=== PATIENT | female | born 1970 | race Hispanic/Latino ===

== ENCOUNTER 2018-01-04 02:47 | Day surgery (SDC) | payer OTHER ==
[2018-01-04 03:32] LABS: BASO % 0.4 % (0.0-1.0); EOS # 0.1 10^3/uL (0.0-0.50); EOS % 1.3 % (0.0-3.0); HEMATOCRIT 39.4 % (36.0-47.0); HEMOGLOBIN 12.6 g/dl (12.0-15.5); IMMATURE GRANULOCYTE % 0.4 % (0-3.0); LYMPH # 1.9 10^3/uL (1.5-4.5); LYMPH % 17.7 % (24.0-44.0); MEAN CORPUSCULAR HEMOGLOBIN 28.5 pg (27.0-33.0); MEAN CORPUSCULAR VOLUME 89.1 fl (80.0-96.0); MONO # 0.5 10^3/uL (0.0-0.8); MONO % 4.5 % (0.0-5.0); NEUTROPHILS # 7.9 10^3/uL (1.8-7.7); NEUTROPHILS % 75.7 % (36.0-66.0); PLATELET COUNT, AUTOMATED 231 10^3/uL (150-450); RED BLOOD COUNT 4.42 10^6/uL (4.00-5.40); RED CELL DISTRIBUTION WIDTH 13.7 % (11.5-14.5); WHITE BLOOD COUNT 10.5 10^3/uL (4.0-10.0)
[2018-01-04 04:00] LABS: LACTIC ACID SEPSIS PROTOCOL 1.6 MMOL/L (0.4-2.0)
[2018-01-04 04:01] LABS: ALKALINE PHOSPHATASE 135 U/L (45-117); ALT/SGPT 62 U/L (12-78); ANION GAP 3 MEQ/L (8-16); AST/SGOT 84 U/L (7-37); BILIRUBIN,DIRECT 0.2 MG/DL (0.0-0.2); BILIRUBIN,TOTAL 0.7 MG/DL (0.2-1.0); BLOOD UREA NITROGEN 15 MG/DL (7-18); CALCIUM LEVEL 8.5 MG/DL (8.5-10.1); CARBON DIOXIDE LEVEL 29 MEQ/L (21-32); CHLORIDE LEVEL 108 MEQ/L (98-107); CPK CREATINE PHOSPHOKINASE 101 U/L (26-192); CREATININE FOR GFR 0.87 MG/DL (0.55-1.30); GLOMERULAR FILTRATION RATE > 60.0 (>58); GLUCOSE, FASTING 146 MG/DL (70-100); LIPASE 151 U/L (73-393); POTASSIUM SERUM 3.8 MEQ/L (3.5-5.1); SODIUM LEVEL 140 MEQ/L (136-145); TOTAL PROTEIN 7.3 GM/DL (6.4-8.2); TROPONIN I < 0.02 NG/ML (< 0.10)
[2018-01-04 04:02] LABS: CK-MB VALUE MASS < 1.0 NG/ML (<3.6); MB/CK RELATIVE INDEX 0.99 (< OR =4)
[2018-01-04] MEDS ORDERED: ISOVUE-370 76% 100ML VIAL (Q9967) As Ordered (05:57)
[2018-01-04] MEDS: NS 1,000 ML IV (10:23)
[2018-01-04] MEDS: AMPICILLIN SOD/SULBACTAM SOD 3 GM in D5W MINI-BAG PLUS 100 ML IV ×3 (10:23→22:42)
[2018-01-04] MEDS ORDERED: ONDANSETRON 4MG/2ML VIAL (J2405) IV (11:45)
[2018-01-04] MEDS ORDERED: KETOROLAC 30 MG/ML VIAL (J1885) IV (11:45)
[2018-01-04] MEDS ORDERED: MORPHINE 4 MG/ML 1ML VIAL/SYRINGE (J2270) IV (11:45)
[2018-01-04] MEDS: LR 1,000 ML IV ×2 (12:45→19:45)
[2018-01-04] MEDS ORDERED: MIDAZOLAM INJ 2 MG/2 ML VIAL (J2250) As Ordered (17:24)
[2018-01-04] MEDS ORDERED: ROCURONIUM BROMIDE 50 MG/5 ML VIAL As Ordered (17:24)
[2018-01-04] MEDS ORDERED: LIDOCAINE 2% INJ 100 MG/5 ML SDV (FOR ANES.) As Ordered (17:24)
[2018-01-04] MEDS ORDERED: fentaNYL 250 MCG/5 ML INJECTION (J3010) As Ordered (17:24)
[2018-01-04] MEDS ORDERED: KETOROLAC 60 MG/2 ML VIAL (J1885) As Ordered (17:24)
[2018-01-04] MEDS ORDERED: PROPOFOL 200 MG/20 ML VIAL As Ordered ×2 (17:24→18:51)
[2018-01-04] MEDS ORDERED: dexameTHASONE 4 MG/ML 1ML VIAL (J1100) As Ordered (17:24)
[2018-01-04] MEDS ORDERED: ePHEDrine SULFATE 25 MG/5 ML(5MG/ML) SYRINGE As Ordered (18:12)
[2018-01-04] MEDS ORDERED: GLYCOPYRROLATE INJ 0.2 MG/ML 2 ML VIAL As Ordered (18:12)
[2018-01-04] MEDS: BUPIVACAINE HCL 0.25% 30 ML VIAL As Ordered (18:18)
[2018-01-04] MEDS: BUPIVACAINE HCL 0.25% 10 ML VIAL As Ordered (18:18)
[2018-01-04] MEDS ORDERED: fentaNYL 100 MCG/2 ML INJECTION (J3010) As Ordered (18:47)
[2018-01-04] MEDS ORDERED: ACETAMINOPHEN TAB 650MG DOSE (2X325MG) PO (19:45)
[2018-01-04] MEDS ORDERED: HYDROmorphone HCL 1 MG/ML SYRINGE (J1170) IV (19:45)
[2018-01-04] MEDS ORDERED: fentaNYL 100 MCG/2 ML INJECTION (J3010) IV (19:45)
[2018-01-04] MEDS ORDERED: NORCO, ANEXSIA 5/325MG TABLET (HYDROcodone/ACETAMINOPHEN) PO (19:45)
[2018-01-04] MEDS ORDERED: PERCOCET 5MG/325MG TAB As Ordered ×2 (19:48→20:04)
[2018-01-04] MEDS ORDERED: ONDANSETRON 4MG/2ML VIAL (J2405) As Ordered (19:48)
[2018-01-04] MEDS: PERCOCET 5MG/325MG TAB PO ×2 (19:55→20:14)
[2018-01-04] MEDS: ONDANSETRON 4MG/2ML VIAL (J2405) IV (20:06)
[2018-01-04] MEDS ORDERED: PERCOCET 5MG/325MG TAB PO (20:15)
[2018-01-05] MEDS: AMPICILLIN SOD/SULBACTAM SOD 3 GM in D5W MINI-BAG PLUS 100 ML IV (03:46)
[2018-01-05] MEDS: IBUPROFEN 400 MG TAB PO (13:23)
== END 2018-01-05 13:33 | disposition home or self-care (01) ==
LOC: M OPP 01-05 13:33 → M ED 02:47 → M OPP 11:39 → M PED 14:50
DX: K80.00 Calculus of gallbladder with acute cholecystitis without obstruction (principal); E66.9 Obesity, unspecified; Z68.41 Body mass index [BMI] 40.0-44.9, adult
CPT/HCPCS: 47562

== ENCOUNTER → 2019-10-08 | Outpatient (CLI) | payer OTHER ==
--- NOTE | 2019-10-08 15:08 | REPMRS ---
Patient History The patient states she has not had a clinical breast exam in over a year. Family history of unknown cancer at age 40 in father, prostate cancer at age 75 in brother. Indicated problem(s): left breast palpable abnormality. Patient has translater with her. Patient states no new breast issues but has had same lump for 3 years. 2D only due to insurance. Digital Mammo Diagnostic Bilateral: October 08, 2019 - Exam #: [id number] Bilateral CC and MLO view(s) were taken. Technologist: Sole Magaña, Technologist Prior study comparison: June 15, 2016, left breast digital mammo diagnostic unilateral performed at [facility]. May 12, 2016, bilateral digital mammo screening bilat performed at [facility]. FINDINGS: There are scattered fibroglandular densities. The nodule noted in the upper outer quadrant of the left breast on the 2016 prior mammogram is no longer apparent.There has been no change in the appearance of the mammogram from the prior studies. There is a mild amount of scattered fibroglandular density which is fairly symmetric. There is no interval development of dominant mass, architectural distortion, or groupe d microcalcification suggestive of malignancy. 3-D tomosynthesis shows no additional findings. Assessment: BI-RADS/ACR category 1 mammogram. Negative Mammogram. Recommendation Routine screening mammogram of both breasts in 1 year (for women over age 40). This patient's Lifetime Breast Cancer Risk is estimated at 7.9 %. This mammogram was interpreted with the aid of an FDA-approved computer-aided dectection system. Electronically Signed By: Dane Murray MD 10/08/19 5915
== END ==
LOC: M RAD 13:33
PROVIDERS: ATTEND Nurse Practitioner Primary Care
DX: Z12.31 Encounter for screening mammogram for malignant neoplasm of breast (principal); N63.20 Unspecified lump in the left breast, unspecified quadrant; Z80.42 Family history of malignant neoplasm of prostate

== ENCOUNTER 2020-10-13 08:00 | Day surgery (SDC) | payer OTHER ==
[~2020-10-13] VITALS: Ht 167.6 cm; Wt 110.6 kg
[~2020-10-13 08:00] MED LIST: ACETAMINOPHEN 650 MG SUPP PR ONE; LISI10TA22; LR 1,000 ML IV ONE; ceFAZolin SOD 2 GM in IV 1 EA IV ONE
--- OUTSIDE RECORDS SUMMARY | 2020-10-13 08:11 | CCD | Continuity of Care Document ---
Author Nidia Skelton Organization Unknown Address [address] [facility], [facility] [place] [address] Phone [phone] Care Team Providers Care Chart Reader Name Role Phone Margareth Canchola CAR REPAIRER APPRENTICE AUTM [phone] Problems Active Problems Provider Date Body mass index 30+ - obesity David Magdaleno MD Onset: 01/2020 Pure hypercholesterolemia David Magdaleno MD Onset: 020 Essential hypertension David Magdaleno MD Onset: 06/29/2020 Cardiomegaly David Magdaleno MD Onset: 06/29/2020 Precordial pain David Magdaleno MD Onset: 06/29/2020 Social History Type Date Description Comments Sex Unknown ETOH Use Never used alcohol Tobacco Use Start: Unknown Patient has never smoked Exposed to secondhand smoke for 18 years growing up Smoking Status Reviewed: 06/29/20 Patient has never smoked Expo sed to secondhand smoke for 18 years growing up 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 Exercise Type/Frequency Bikes twice a week Exercise Limitations None Allergies, Adverse Reactions, Alerts Description No Known Drug Allergies Medications Active Medications SIG Qnty Indications Ordering Provide r Date Lisinopril 10mg Tablets 1 by mouth every day Unknown 06/28/2020 Immunizations Description No Information Available Vital Signs Date Vital Result Comment 06/29/2020 10:03am Weight 250.00 lb Home Weight 246lb home weight Height 68 inches 5'8" BMI (Body Mass Index) 38.0 kg/m2 Heart Rate 54 /min regular Respiratory Rate 16 /min BP Systolic Sitting 102 mmHg large cuff, Ra; 110/ 80 LA BP Diastolic Sitting 74 mmHg large cuff, Ra; 110 /80 LA BP Systolic Lying Down 116 mmHg Ra BP Diastolic Lying Down 78 mmHg Ra O2 % BldC Oximetry 98 % O2 Saturation Level with Exercise 96 % Results Test Acquired Date Facility Test Result H/L Range Note Laboratory test finding 03/17/2020 [place] [address] [phone] Thyroid Stimulating Hormone 1.210 CBC without Differential 03/17/2020 [place] [address] [phone] White Blood Count 5.80 Red Blood Count 4.46 Platelets 212 Hemoglobin 13.4 Hematocrit 40.9 Procedures Date Code Description Status 08/05/2020 70197 Echocardiogram 2-D Doppler Color Completed 07/13/2020 91597 Treadmill/Pharmacological Monito ring Completed 07/13/2020 73064 Myocardial Perfusion Spect Multi ple Completed 07/01/2020 99622 Treadmill/Pharmacological Monito ring Completed 06/29/2020 74490 ECG 12-Lead Completed Medical Devices Description No Information Available Encounters Type Date Location Provider Dx Diagnosis Office Visit 06/29/2020 9:30a Main Office David Magdaleno MD R07.2 Precordial pain I51.7 Cardiomegaly I10 Essential (primary) hyperten erika E78.00 Pure hypercholesterolemia, u nspecified Z68.38 Body mass index [BMI] 38.0-3 8.9, adult Assessments Date Code Description Provider 08/05/2020 I51.7 Cardiomegaly ECHO 08/05/2020 R06.02 Shortness of breath ECHO 08/05/2020 R60.0 Localized edema ECHO 07/13/2020 R07.2 Precordial pain Stress Nuclear/R eg Treadmill 07/01/2020 R07.2 Precordial pain Stress Nuclear/R eg Treadmill 06/29/2020 R07.2 Precordial pain David Magdaleno MD 06/29/2020 I51.7 Cardiomegaly David Magdaleno MD 06/29/2020 I10 Essential (primary) hypertension David Magdaleno MD 06/29/2020 E78.00 Pure hypercholesterolemia, unspe cified David Magdaleno MD 06/29/2020 Z68.38 Body mass index [BMI] 38.0-38.9, adult David Magdaleno MD Plan of Treatment Future Appointment(s):* 08/07/2020 11:00 am - David Magdaleno MD at Main Office 06/29/2020 - David Magdaleno MD* R07.2 Precordial pain* Recommendations:* Have recommended a regular treadmill stress study to define her coronary prognosis and exercise tolerance. For the time being, remains on protective lisinopril therapy alone. * I51.7 Cardiomegaly* Recommendations:* Echocardiogram/Doppler study will be obtained to define cardiac chamber sizes, wall thickness and function. Would emphasized the importance of significant weight reduction to reduce cardiac workload and prevent heart failure. * I10 Essential (primary) hypertension* Recommendations:* Encouraged salt and caloric restriction with regular exercise. Should avoid cooking with salt; using salt the table; and eating food that tastes salty. No change has been made to her current lisinopril pending the results of her noninvasive cardiac tests. * E78.00 Pure hypercholesterolemia, unspecified* Recommendations:* Would encourage continued dietary measures and regular exercise i.e walking at her own pace for at least 30 minutes daily. * Z68.38 Body mass index [BMI] 38.0-38.9, adult* Recommendations:* Have encouraged a low carbohydrate diet (avoiding bread, potatoes, pasta, rice, fruit, candy, desserts, and beer etc.) as these, with regular exercise, have been shown to be more effective in leading to weight loss. Emphasized every pound she loses reduces her cardiac workload and her risk for congestive heart failure. * All * Comments:* I will ensure that the aforementioned test findings are reported to you along with any further recommendations. Thank you for allowing me to participate in the care of your patient. Best regards. * Follow up:* Clinic visit post testing Functional Status Functional Condition Comment Date Status Independent with all ADL's Activ e Mental Status Description No Information Available Referrals Refer to Reason for Referral Status Appt Date David Magdaleno MD 1 CLT AUTH EMR-VALID 03/28/20 - 09/24/20. [place] Created [address] [facility] [address] [phone] David Magdaleno MD 3 OV VALID 03/28/20 - 03/28/21. [place] Created [id number] [facility] [address] [phone]
--- OUTSIDE RECORDS SUMMARY | 2020-10-13 08:11 | CCD ---
Author Author [facility] Organization [facility] Address Unknown Phone Unavailable Care Team Providers Care Cinetechnician Name Role Phone Sherice DEVINE MD Unavailable Unavailable Sherice DEVINE MD Unavailable Unavailable Sherice DEVINE MD Unavailable Unavailable Sherice DEVINE MD Unavailable Unavailable Sherice DEVINE MD Unavailable Unavailable Sherice DEVINE MD Unavailable Unavailable Sherice DEVINE MD Unavailable Unavailable Sherice DEVINE MD Unavailable Unavailable Sherice DEVINE MD Unavailable Unavailable Sherice DEVINE MD Unavailable Unavailable Sherice DEVINE MD Unavailable Unavailable Sherice DEVINE MD Unavailable Unavailable Sherice DEVINE MD Unavailable Unavailable Nadeem, Jeanette DO Unavailable Unavailable Nadeem, Jeanette DO Unavailable Unavailable Nadeem, Jeanette DO Unavailable Unavailable Nadeem, Jeanette DO Unavailable Unavailable Nadeem, Jeanette DO Unavailable Unavailable Nadeem, Jeanette DO Unavailable Unavailable Nadeem, Ejanette DO Unavailable Unavailable Nadeem, Jeanette DO Unavailable Unavailable Nadeem, Jeanette DO Unavailable Unavailable Nadeem, Jeanette DO Unavailable Unavailable Nadeem, Jeanette DO Unavailable Unavailable Nadeem, Jeanette DO Unavailable Unavailable Nadeem, Jeanette DO Unavailable Unavailable Nadeem, Jeanette DO Unavailable Unavailable Nadeem, Jeanette DO Unavailable Unavailable Nadeem, Jeanette DO Unavailable Unavailable Nadeem, Jeanette DO Unavailable Unavailable Nadeem, Jeanette DO Unavailable Unavailable Nadeem, Jeanette DO Unavailable Unavailable Nadeem, Jeanette DO Unavailable Unavailable Nadeem, Jeanette DO Unavailable Unavailable Nadeem, Jeanette DO Unavailable Unavailable Nadeem, Jeanette DO Unavailable Unavailable Nadeem, Jeanette DO Unavailable Unavailable Nadeem, Jeanette DO Unavailable Unavailable Nadeem, Jeanette DO Unavailable Unavailable Nadeem, Jeanette DO Unavailable Unavailable Nadeem, Jeanette DO Unavailable Unavailable Nadeem, Jenaette DO Unavailable Unavailable Nadeem, Jeanette DO Unavailable Unavailable Nadeem, Jeanette DO Unavailable Unavailable Nadeem, Jeanette DO Unavailable Unavailable Nadeem, Jeanette DO Unavailable Unavailable Nadeem, Jeanette DO Unavailable Unavailable Nadeem, Jeanette DO Unavailable Unavailable Nadeem, Jeanette DO Unavailable Unavailable Nadeem, Jeanette DO Unavailable Unavailable Nadeem, Jeanette DO Unavailable Unavailable Nadeem, Jeanette DO Unavailable Unavailable Nadeem, Jeanette DO Unavailable Unavailable Nadeem, Jeanette DO Unavailable Unavailable Nadeem, Jeanette DO Unavailable Unavailable Nadeem, Jeanette DO Unavailable Unavailable Nadeem, Jeanette DO Unavailable Unavailable Nadeem, Jeanette DO Unavailable Unavailable Nadeem, Jeanette DO Unavailable Unavailable Nadeem, Jeanette DO Unavailable Unavailable Nadeem, Jeanette DO Unavailable Unavailable Nadeem, Jeanette DO Unavailable Unavailable Nadeem, Jeanette DO Unavailable Unavailable Nadeem, Jeanette DO Unavailable Unavailable Nadeem, Jeanette DO Unavailable Unavailable Nadeem, Jeanette DO Unavailable Unavailable Nadeem, Jeanette DO Unavailable Unavailable Nadeem, Jeanette DO Unavailable Unavailable Nadeem, Jeanette DO Unavailable Unavailable Nadeem, Jeanette DO Unavailable Unavailable Nadeem, Jeanette DO Unavailable Unavailable Nadeem, Jeanette DO Unavailable Unavailable Nadeem, Jeanette DO Unavailable Unavailable Nadeem, Jeanette DO Unavailable Unavailable Nadeem, Jeanette DO Unavailable Unavailable Nadeem, Jeanette DO Unavailable Unavailable Nadeem, Jeanette DO Unavailable Unavailable Nadeem, Jeanette DO Unavailable Unavailable Nadeem, Jeanette DO Unavailable Unavailable Nadeem, Jeanette DO Unavailable Unavailable Nadeem, Jeanette DO Unavailable Unavailable Nadeem, Jeanette DO Unavailable Unavailable Nadeem, Jeanette DO Unavailable Unavailable Nadeem, Jeanette DO Unavailable Unavailable Nadeem, Jeanette DO Unavailable Unavailable Kadeem FINE MD Unavailable Unavailable Kadeem FINE MD Unavailable Unavailable Kadeem FINE MD Unavailable Unavailable Kadeem FINE MD Unavailable Unavailable FINE, Kadeem SAHNI MD Unavailable Unavailable FINE, Kadeem SAHNI MD Unavailable Unavailable FINE, Kadeem SAHNI MD Unavailable Unavailable FINE, Kadeem SAHNI MD Unavailable Unavailable FINE, Kadeem SAHNI MD Unavailable Unavailable FINE, Kadeem SAHNI MD Unavailable Unavailable FINE, Kadeem SAHNI MD Unavailable Unavailable FINE, Kadeem SAHNI MD Unavailable Unavailable FINE, Kadeem SAHNI MD Unavailable Unavailable FINE, Kadeem SAHNI MD Unavailable Unavailable FINE, Kadeem SAHNI MD Unavailable Unavailable FINE, Kadeem SAHNI MD Unavailable Unavailable FINE, Kadeem SAHNI MD Unavailable Unavailable FINE, Kadeem SAHNI MD Unavailable Unavailable FINE, Kadeem SAHNI MD Unavailable Unavailable FINE, Kadeem SAHNI MD Unavailable Unavailable FINE, Kadeem SAHNI MD Unavailable Unavailable FINE, Kadeem SAHNI MD Unavailable Unavailable FINE, Kadeem SAHNI MD Unavailable Unavailable FINE, Kadeem SAHNI MD Unavailable Unavailable FINE, Kadeem SAHNI MD Unavailable Unavailable FINE, E KAITLYN RODRIGUEZ Unavailable Unavailable FINE, Kadeem SAHNI MD Unavailable Unavailable FINE, Kadeem SAHNI MD Unavailable Unavailable FINE, Kadeem SAHNI MD Unavailable Unavailable FINE, Kadeem SAHNI MD Unavailable Unavailable FINE, Kadeem SAHNI MD Unavailable Unavailable FINE, Kadeem SAHNI MD Unavailable Unavailable FINE, Kadeem SAHNI MD Unavailable Unavailable FINE, Kadeem SAHNI MD Unavailable Unavailable FINE, Kadeem SAHNI MD Unavailable Unavailable FINE, Kadeem SAHNI MD Unavailable Unavailable FINE, Kadeem SAHNI MD Unavailable Unavailable FINE, Kadeem SAHNI MD Unavailable Unavailable FINE, E KAITLYN RODRIGUEZ Unavailable Unavailable FINE, Kadeem SAHNI MD Unavailable Unavailable FINE, E KAITLYN RODRIGUEZ Unavailable Unavailable FINE, Kadeem SAHNI MD Unavailable Unavailable FINE, Kadeem SAHNI MD Unavailable Unavailable FINE, E KAITLYN RODRIGUEZ Unavailable Unavailable FINE, Kadeem SAHNI MD Unavailable Unavailable FINE, Kadeem SAHNI MD Unavailable Unavailable FINE, Kadeem SAHNI MD Unavailable Unavailable FINE, Kadeem SAHNI MD Unavailable Unavailable FINE, Kadeem SAHNI MD Unavailable Unavailable FINE, Kadeem SAHNI MD Unavailable Unavailable FINE, Kadeem SAHNI MD Unavailable Unavailable FINE, Kadeem SAHNI MD Unavailable Unavailable FINE, Kadeem SAHNI MD Unavailable Unavailable FINE, Kadeem SAHNI MD Unavailable Unavailable FINE, Kadeem SAHNI MD Unavailable Unavailable FINE, Kademe SAHNI MD Unavailable Unavailable FINE, Kadeem SAHNI MD Unavailable Unavailable Re-disclosure Warning The records that you are about to access may contain information from federally-assisted alcohol or drug abuse programs. If such information is present, then the following federally mandated warning applies: This information has been disclosed to you from records protected by federal confidentiality rules (42 CFR part 2). The federal rules prohibit you from making any further disclosure of this information unless further disclosure is expressly permitted by the written consent of the person to whom it pertains or as otherwise permitted by 42 CFR part 2. A general authorization for the release of medical or other information is NOT sufficient for this purpose. The Federal rules restrict any use of the information to criminally investigate or prosecute any alcohol or drug abuse patient.The records that you are about to access may contain highly sensitive health information, the redisclosure of which is protected by Article 27-F of the [facility] Public Health law. If you continue you may have access to information: Regarding HIV / AIDS; Provided by facilities licensed or operated by the [facility] Office of Mental Health; or Provided by the [facility] Office for People With Developmental Disabilities. If such information is present, then the following [facility] mandated warning applies: This information has been disclosed to you from confidential records which are protected by state law. State law prohibits you from making any further disclosure of this information without the specific written consent of the person to whom it pertains, or as otherwise permitted by law. Any unauthorized further disclosure in violation of state law may result in a fine or fci sentence or both. A general authorization for the release of medical or other information is NOT sufficient authorization for further disc losure. Allergies and Adverse Reactions Type Description Substance Reaction Status Data Source(s ) No Known Drug Allergies No Known Drug Allergies [facility] No Known Environmental Allergies No Known Environmental [facility] No Known Food Allergies No Known Food Allergies [facility] Family History Family Member Name Family Member Gender Family Member Status Date o f Status Description Data Source(s) Unknown Unknown Problem [facility] ([facility], ) Encounters Encounter Providers Location Date Indications Data Source(s ) Outpatient Attender: KAITLYN FINE MD Main Office 06/29/2020 09:30:00 AM EDT [facility] ([facility]) Outpatient Attender: IRVIN DEVINE MD 2019 08:28:56 AM EDT - 12/03/2019 08:42:00 AM T [facility] Patient discharged. Outpatient Attender: IRVIN DEVINE MD 2019 04:04:00 PM EST - 11/27/2019 05:04:00 PM [facility] Outpatient Referrer: Jeanette Silver DO 10/22/2019 09:01:00 PM EST [facility] Outpatient Attender: IRVIN DEVINE MD 2019 01:04:00 PM EST - 10/03/2019 01:04:00 PM EST [facility] Medications Medication Brand Name Start Date Product Form Dose Route Admi nistrative Instructions Pharmacy Instructions Status Indications Reaction Description Data Source(s) Lisinopril 10 MG Oral Tablet Lisinopril 06/28/2020 12:00:00 AM EDT ORAL active [facility] ([facility]) Bisacodyl 5 MG Delayed Release Oral Tablet [Dulcolax] Dulcol ax 10/03/2019 12:00:00 AM EST active M [facility] ([facility]) POLYETHYLENE GLYCOL 3350 142 MG/ML Oral Solution [Miralax] M iralax 10/03/2019 12:00:00 AM EST active M [facility] ([facility]) No Active Medications 10/03/2019 12:00:00 AM EST completed [facility] ([facility]) Insurance Providers Payer name Policy type / Coverage type Policy ID Covered democrat ID Covered democrat's relationship to ryan Policy Ryan Plan Information [employer] [id number] HU2 [id number] [place] [employer] [place] [id number] 01 [id number] HUMANA [place] [id number] S [id number] [place] [id number] 18 [id number] [employer] [id number] HU2 [id number] [place] P [id number] O [id number] [place] P UNAVAILABLE S UNAVAILABLE [place] (2018) Health Maintenance Organization (HMO) [id number] Self [id number] [employer] [place] [id number] HU2 [id number] [facility] Commercial Family Dependent [facility] [place] O [id number] P [id number] D [facility] Dental Program P [id number] O [id number] Problems, Conditions, and Diagnoses Code Display Name Description Problem Type Effective Dates Data Source(s) 72944976 Precordial pain Precordial pain Problem 06/29/2020 12:0 0:00 AM EDT [facility] ([facility]) [id number] Cardiomegaly Cardiomegaly Problem 06/29/2020 12:00:00 A M EDT [facility] ([facility]) [id number] Essential hypertension Essential hypertension Problem 06/29/2020 12:00:00 AM EDT [facility] ([facility]) [id number] Pure hypercholesterolemia Pure hypercholesterolemia Pr oblem 06/29/2020 12:00:00 AM EDT [facility] ([facility]) [id number] Body mass index 30+ - obesity Body mass index 30+ - ob esity Problem 06/29/2020 12:00:00 AM EDT [facility] ([facility]) [id number] Encounter for screening for malignant ne oplasm of colon Encounter for screening for malignant neoplasm of colon Diagnosis 12/03/2019 06:30:0 0 AM EDT [facility] [id number] Encounter for other preprocedural examin ation Encounter for other preprocedural examination Diagnosis 11/27/2019 04:04:00 PM EST Health system Surgeries/Procedures Procedure Description Date Indications Data Source(s) ECHO TTHRC R-T 2D W/WOM-MODE COMPL SPEC&COLR DOP 08/05 12:00:00 AM EST [facility] ([facility]) MYOCARDIAL SPECT MULTIPLE STUDIES 07/13/2020 12:00:00 AM EDT [facility] ([facility]) CV STRS TST XERS&/OR RX CONT ECG PHYS SI&R 07/13/2020 12:00:00 AM EDT [facility] ([facility]) CV STRS TST XERS&/OR RX CONT ECG PHYS SI&R 07/01/2020 12:00:00 AM EDT [facility] ([facility]) ECG ROUTINE ECG W/LEAST 12 LDS W/I&R 06/29/2020 12:00: 00 AM EDT [facility] ([facility]) Results ID Date Data Source [id number] 10/08/2020 11:13:00 AM EST [facility] Name Value Range Interpretation Code Description Data Alison rce(s) Supporting Document(s) SARS coronavirus 2 RNA Not Detected [facility] [place] This lab was ordered by [facility] Laboratory and reported by [facility]. ID Date Data Source [id number] 03/17/2020 05:19:00 PM EDT [facility] Name Value Range Interpretation Code Description Data Alison rce(s) Supporting Document(s) White Blood Count 5.80 [facility] ([facility]) Hemoglobin 13.4 [facility] ([facility]) Red Blood Count 4.46 [facility] ([facility]) Platelets 212 [facility] Hematocrit 40.9 [facility] ([facility]) ID Date Data Source [id number] 03/17/2020 05:19:00 PM EDT [facility] Name Value Range Interpretation Code Description Data Alison rce(s) Supporting Document(s) Thyroid Stimulating Hormone 1.210 ME [facility] ([facility]) Procedure Social History Code Duration Value Status Description Data Source(s ) Smoking 06/29/2020 12:00:00 AM EDT Patient has never smoked co mpleted Patient has never smoked [facility] ([facility]) Vital Signs ID Date Data Source UNK Name Value Range Interpretation Code Description Data Source(s) Oxygen saturation in Arterial blood by Pulse oximetry --post exerci se 96 % 96 % [facility] ([facility]) Oxygen saturation in Arterial blood by Pulse oximetry 98 % 98 % [facility] ([facility]) Diastolic blood pressure--supine 78 mm[Hg] 78 mm[Hg] [facility] ([facility]) Ra Systolic blood pressure--supine 116 mm[Hg] 116 mm[Hg] [facility] ([facility]) Ra Diastolic blood pressure--sitting 74 mm[Hg] 74 mm[Hg] [facility] ([facility]) large cuff, Ra; 110/80 LA Systolic blood pressure--sitting 102 mm[Hg] 102 mm[Hg] [facility] ([facility]) large cuff, Ra; 110/80 LA Respiratory rate 16 /min 16 /min [facility] ( [facility]) Heart rate 54 /min 54 /min [facility] ([facility]) regular Body mass index (BMI) [Ratio] 38.0 kg/m2 38.0 k g/m2 [facility] ([facility]) Body height 68 [in_i] 68 [in_i] [facility] 5'8" Body weight 250.00 [lb_av] 250.00 [lb_av] [facility] T ([facility]) Body surface area 2.24 m2 2.24 m2 [facility] ([facility]) Body mass index (BMI) [Ratio] 37.9 kg/m2 37.9 k g/m2 [facility] ([facility]) Body height 68 [in_i] 68 [in_i] [facility] ([facility]) 5'8" pt states Body weight 112.946 kg 112.946 kg [facility] ([facility]) Body weight 249.00 [lb_av] 249.00 [lb_av] MED[facility] T ([facility]) Oxygen saturation in Arterial blood by Pulse oximetry 98 % 98 % [facility] ([facility]) Respiratory rate 18 /min 18 /min [facility] ( [facility]) Body temperature 97.2 [degF] 97.2 [degF] [facility] ([facility]) Heart rate 78 /min 78 /min [facility] ([facility]) Diastolic blood pressure 78 mm[Hg] 78 mm[Hg] [facility] ([facility]) Systolic blood pressure 124 mm[Hg] 124 mm[Hg] [facility]) ID Date Data Source [id number] 12/10/2019 12:41:01 PM EDT [facility] Name Value Range Interpretation Code Description Data Source(s) WEIGHT RECORDED 249.[address] [facility] Height 68 Inches 068 Inches [facility]
[2020-10-13 08:59] LABS: HEMATOCRIT 43.7 % (36.0-47.0); HEMOGLOBIN 13.7 g/dl (12.0-15.5); MEAN CORPUSCULAR HGB CONC 31.4 g/dl (32.0-36.5); MEAN CORPUSCULAR VOLUME 92.6 fl (80.0-96.0); PLATELET COUNT, AUTOMATED 286 10^3/uL (150-450); RED BLOOD COUNT 4.72 10^6/uL (4.00-5.40); WHITE BLOOD COUNT 7.3 10^3/uL (4.0-10.0)
[2020-10-13 09:17] LABS: BLOOD UREA NITROGEN 9 MG/DL (7-18); CALCIUM LEVEL 9.2 MG/DL (8.5-10.1); CARBON DIOXIDE LEVEL 26 MEQ/L (21-32); CHLORIDE LEVEL 109 MEQ/L (98-107); CREATININE FOR GFR 0.89 MG/DL (0.55-1.30); GLOMERULAR FILTRATION RATE > 60.0 (>51); GLUCOSE, FASTING 97 MG/DL (70-100); SODIUM LEVEL 141 MEQ/L (136-145)
[2020-10-13] MEDS ORDERED: LIDOCAINE 2% 100MG/5ML SDV (FOR ANES.) As Ordered ONE (09:50)
[2020-10-13] MEDS ORDERED: propofoL 200 MG/20 ML VIAL As Ordered ONE (09:50)
[2020-10-13] MEDS ORDERED: MIDAZOLAM INJ 2MG/2ML VIAL (J2250 PER 1MG) As Ordered ONE (09:51)
[2020-10-13] MEDS ORDERED: fentaNYL 100 MCG/2 ML INJECTION (J3010) As Ordered ONE (09:51)
[2020-10-13] MEDS ORDERED: METOCLOPRAMIDE INJ 10MG/2ML VIAL (J2765 PER 1) As Ordered ONE (09:51)
[2020-10-13] MEDS ORDERED: ONDANSETRON 4MG/2ML VIAL As Ordered ONE (09:51)
[2020-10-13] MEDS ORDERED: KETOROLAC 60MG 2ML VIAL As Ordered ONE (09:51)
[2020-10-13] MEDS ORDERED: ACETAMINOPHEN 650 MG SUPP As Ordered ONE (10:06)
[2020-10-13] MEDS ORDERED: IBUPROFEN 600MG TAB PO PRN (11:30)
[2020-10-13] MEDS ORDERED: fentaNYL 100 MCG/2 ML INJECTION (J3010) IV PRN (11:30)
[2020-10-13] MEDS ORDERED: LR 1,000 ML IV SCH (11:30)
[2020-10-13] MEDS ORDERED: ONDANSETRON 4MG/2ML VIAL IV PRN (11:30)
[2020-10-13] MEDS ORDERED: MEPERIDINE INJ 25 MG/ML VIAL (J2175) IV PRN (11:30)
[2020-10-13] MEDS ORDERED: oxyCODONE 5MG TAB PO PRN (11:30)
[2020-10-13] MEDS ORDERED: METOCLOPRAMIDE INJ 10MG/2ML VIAL (J2765 PER 1) IV PRN (11:30)
[2020-10-13 13:35] VITALS: BP 150/67
--- NOTE | 2020-10-21 09:24 | RO ---
OPERATIVE NOTE DATE OF OPERATION: 10/13/2020 PREOPERATIVE DIAGNOSIS: Abnormal uterine bleeding and intrauterine inflammatory effect. POSTOPERATIVE DIAGNOSIS: Abnormal uterine bleeding and intrauterine inflammatory effect. OPERATION PROPOSED: Hysteroscopy, dilatation and curettage (D&C), and multiple cultures. OPERATION PERFORMED: Hysteroscopy, dilatation and curettage (D&C), and multiple cultures. SURGEON: Arnoldo Landeros MD JUNIOR MECHANICAL ENGINEER: ANESTHESIA: General. ESTIMATED BLOOD LOSS: Less than 10 mL. DESCRIPTION OF PROCEDURE: After adequate timeout, prepped and draped in the lithotomy position, sequentials in place, prophylactic antibiotics preoperatively and acetaminophen suppository 1300 mg per rectum. Weighted speculum in vagina, single-tooth tenaculum on the anterior lip of the cervix, the uterus was sounded to a depth of 8-9 cm. There was a mid section stenosis at the isthmus-uterine junction. We dilated the cervix appropriately to get in the hysteroscope. A 30-degree scope was used. We reviewed the internal aspect of the uterus. It looked like chronic inflammatory effect. The fundus itself appeared to be devoid of any tissue and most of the inflammatory effect was low down in the lower uterine segment. Appropriate cultures were done for tuberculosis, Ureaplasma urealyticum. Other viral cultures were done as well; curettage of the cavity and this was sent off under separate cover to evaluate the etiology. We used 150 mL in, 150 mL out of normal saline. The uterus was replaced in anatomical position while contracted, and the patient was sent to recovery in good condition. [facility]
== END 2020-10-13 13:43 | disposition home or self-care (01) ==
LOC: M SDC 08:00
PROVIDERS: ATTEND Obstetrics & Gynecology
DX: N71.1 Chronic inflammatory disease of uterus (principal); I10 Essential (primary) hypertension; Z79.899 Other long term (current) drug therapy
CPT/HCPCS: 36415; 58558; 80048; 85027; 87109; 87252; 88305; 88342; J0690; J1885; J2250; J2405; J2765; J3010

== ENCOUNTER → 2021-05-07 | Outpatient (CLI) | payer OTHER ==
[~2021-05-07] MED LIST changes: -ACETAMINOPHEN 650 MG SUPP PR ONE; -LR 1,000 ML IV ONE; -ceFAZolin SOD 2 GM in IV 1 EA IV ONE
--- NOTE | 2021-05-07 15:01 | REPMRS ---
Patient History The patient states she has not had a clinical breast exam in over a year. Family history of unknown cancer at age 40 in father, prostate cancer at age 75 in brother. No breast complaints today 1st covid vaccine 03/04/21-left arm-Pfizer 2nd covid vaccine 03/25/21-left arm Priors on PACS Patient Identification Verified Patient denied Digital Woman Screen Mammo: May 07, 2021 - Exam #: [id number] Bilateral CC and MLO view(s) were taken. Technologist: Xochitl Waite, Technologist Prior study comparison: October 08, 2019, digital mammo diagnostic bilateral, performed at [facility]. June 15, 2016, left breast digital mammo diagnostic unilateral, performed at [facility]. May 12, 2016, bilateral digital mammo screening bilat, performed at [facility]. FINDINGS: There are scattered fibroglandular densities. The Volpara volumetric breast density category is:B. There has been no change in the appearance of the mammogram from the prior studies. There is a mild amount of scattered fibroglandular density which is fairly symmetric. There is no interval development of dominant mass, architectural distortion, or grouped microcalcification suggestive of malignancy. 3-D tomosynthesis shows no additional findings. Assessment: BI-RADS/ACR category 1 mammogram. Negative Mammogram. Recommendation Routine screening mammogram of both breasts in 1 year (for women over age 40). This patient's [facility] Lifetime Breast Cancer Risk is estimated at 7.5 %. This mammogram was interpreted with the aid of an FDA-approved computer-aided dectection system. Electronically Signed By: Dane Murray MD 05/07/21 [id number]
== END ==
LOC: M WHC 14:02
PROVIDERS: ATTEND Nurse Practitioner Primary Care
DX: Z12.31 Encounter for screening mammogram for malignant neoplasm of breast (principal)

== ENCOUNTER → 2023-01-17 | Outpatient (CLI) | payer OTHER | LOC: M WHC 14:12 | PROVIDERS: ATTEND Nurse Practitioner Primary Care | DX: Z12.4 Encounter for screening for malignant neoplasm of cervix (principal) ==